=== PATIENT | female | born 2000 | race Caucasian/White ===

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

== ENCOUNTER 2022-02-18 14:59 | Emergency (ER) | payer BC ==
[2022-02-18 15:17] VITALS: RESP 16
--- NOTE | 2022-02-18 15:26 | ED ---
General Adult HPI - General Source: patient Mode of arrival: ambulatory Limitations: no limitations <HickoryAlicja - Last Filed: 02/18/22 15:21> <Gian Ochoa - Last Filed: 02/18/22 20:26> - General Chief complaint: Syncope Stated complaint: Syncope - History of Present Illness Initial comments: Patient is a pleasant 21-year-old female presenting to the emergency room with complaints of a syncopal event earlier today. She reports that she was at home earlier today and stood up at which time she began to feel dizzy and her reports that her head was spinning and things went black and subsequently she fell o the ground. She ats had a previous episode of syncope but it has been a few months and since it has happened. She does report that she occasionally gets dizzy if she stands up too fast. She denies being unconscious for a prolonged period of time. She believes that she may have hit her head she is complaining of head pain on right side. She denies any lacerations or trauma to her extremities. She is not on blood thinners. She denies any dizziness sitting at this time. She denies any chest pain, shortness of breath, abdominal pain, nausea, vomiting, blurred or double vision, headache not directly related to trauma, fevers or chills. (Alicja Lockett) Patient is a 21-year-old female with past medical history remarkable for a family medical history of factor s syndrome presents emergency Department complaining of a syncopal episode. Patient had one a few months ago that res embled this one. She states she was sitting down in her room when she stood up and was walking across when she began having tunnel vision, and brought herself/fell to the ground. She noted she was waking up on the ground. Has a mild headache at this time. Denies any acute complaints otherwise. She presents with her mother over concern for syncopal episode. Is not on blood thinners. Denies any other trauma. Denies any neck pain on the chest pain, shortness of breath. Denies any abdominal pain, nausea, vomiting. No lower extremity edema. No history of blood clots in herself. She states she gets dizzy sometimes when she stands up too fast. Has no other acute complaint at this time. Presents for further evaluation at this time. Patient was initially seen in triage and quick note was placed. Workup was started. (Gian Ochoa) - Related Data Home Medications Medication Instructions Recorded Confirmed Citalopram Hydrobromide [CeleXA] 10 mg PO HS 11/10/18 11/10/18 Minocycline HCl [Minocin] 100 mg PO BID 11/10/18 11/10/18 Allergies Allergy/AdvReac Type Severity Reaction Status Date / Time amoxicillin Allergy Rash/Hives Verified 11/10/18 17:19 Penicillins Allergy Rash/Hives Verified 11/10/18 17:19 Review of Systems ROS Other: All systems not noted in ROS Statement are negative. <Alicja Lockett - Last Filed: 02/18/22 15:21> ROS Other: All systems not noted in ROS Statement are negative. <Gian Ochoa - Last Filed: 02/18/22 20:26> ROS Statement: Those systems with pertinent positive or pertinent negative responses have been documented in the HPI. Review of Systems: CONST: Denies fever EYES: Denies blurry vision ENT: Denies nasal congestion C/V: Denies Chest pain RESP: Denies shortness of breath GI: Denies abdominal pain : Denies dysuria SKIN: Denies rash. MSK: Denies joint pain. NEURO: Denies headache (Gian Ochoa) Past Medical History Past Medical History: No Reported History History of Any Multi-Drug Resistant Organisms: None Reported Past Surgical History: No Surgical Hx Reported Past Psychological History: Anxiety Past Alcohol Use History: None Reported Past Drug Use History: None Reported <Alicja Lockett - Last Filed: 02/18/22 15:21> General Exam Limitations: no limitations <Alicja Lockett - Last Filed: 02/18/22 15:21> <Gian Ochoa - Last Filed: 02/18/22 20:26> - General Exam Comments Initial Comments: General: Appears in no acute distress. HEAD: Normal with no signs of head trauma. Negative alcocer sign. Negative raccoon eyes. EYES: PERRLA, EOMI, conjunctiva normal, no discharge. Pupils are 3 mm equal bilaterally. ENT: Hearing grossly intact, normal oropharynx. RESPIRATORY: Clear breath sounds bilaterally. No wheezes, rales, or rhonchi. C/V: Regular rate and rhythm. S1 and S2 auscultated, no edema, peripheral pulses 2+ and intact throughout ABD: Abd is soft, nontender, nondistended EXT: Normal range of motion, no obvious deformity SKIN: No rashes or lesions observed on exposed skin. NEURO: Alert and oriented x 4. Cranial nerves II-XII intact. No focal sensory or strength deficits. (Gian Ochoa) Course Vital Signs 02/18/22 02/18/22 15:12 19:40 Temperature 97.8 F 98.5 F Pulse Rate 89 71 Respiratory 16 16 Rate Blood Pressure 125/89 105/63 O2 Sat by Pulse 99 99 Oximetry Medical Decision Making - Lab Data Result diagrams: 02/18/22 15:41 02/18/22 15:41 - EKG Data -: EKG Interpreted by Me <Gian Ochoa - Last Filed: 02/18/22 20:26> - Medical Decision Making Was pt. sent in by a medical professional or institution (, PA, LOCOMOTIVE ENGINEER [employer], urgent care, hospital, or shelter...) When possible be specific @ -No Did you speak to anyone other than the patient for history (EMS, parent, family, police, friend...)? What history was obtained from this source @ -Yes. Patient's mother was able to find some family medical history. Did you review nursing and triage notes (agree or disagree)? Why? @ -I reviewed and agree with nursing and triage notes Were old charts reviewed (outside hosp., previous admission, EMS record, old EKG, old radiological studies, urgent care reports/EKG's, shelter records)? Report findings @ -No old charts were reviewed Differential Diagnosis (chest pain, altered mental status, abdominal pain women, abdominal pain men, vaginal bleeding, weakness, fever, dyspnea, syncope, headache, dizziness, GI bleed, back pain, seizure, CVA, palpatations, mental health)? @ -Differential Syncope: Valvular disease, hypertrophic cardiomyopathy, pulmonary embolism, tamponade, tachycardia, bradycardia, OR, hypovolemia, hemorrhage, dissection, anemia, intracranial hemorrhage, seizure, hypoglycemia, carbon monoxide poisoning, this is not meant to be an all-inclusive list. EKG interpreted by me (3pts min.). @ -As above X-rays interpreted by me (1pt min.). @ -Chest x-ray revealed no acute cardio pulmonary process, infiltrate. CT interpreted by me (1pt min.). @ -CT brain revealed no acute intracranial process, mass, midline shift. U/S interpreted by me (1pt. min.). @ -None done What testing was considered but not performed or refused? (CT, X-rays, U/S, labs)? Why? @ -None What meds were considered but not given or refused? Why? @ -None Did you discuss the management of the patient with other professionals (professionals i.e. , PA, LOCOMOTIVE ENGINEER [employer], lab, RT, psych nurse, oncology social work, environmental lawyer, teacher, animal services officer, foster care case manager)? Give summary @ -No Was smoking cessation discussed for >3mins.? @ -No Was critical care preformed (if so, how long)? @ -No Were there social determinants of health that impacted care today? How? (Homelessness, low income, unemployed, alcoholism, drug addiction, transportation, low edu. Level, literacy, decrease access to med. care, [facility], rehab)? @ -No Was there de-escalation of care discussed even if they declined (Discuss DNR or withdrawal of care, Hospice)? DNR status @ -No What co-morbidities impacted this encounter? (DM, HTN, Smoking, COPD, CAD, Cancer, CVA, ARF, Chemo, Hep., AIDS, mental health diagnosis, sleep apnea, morbid obesity)? @ -None Was patient admitted / discharged? Hospital course, mention meds given and route, prescriptions, significant lab abnormalities, going to OR and other pertinent info. @ -Based on the patient's presentation and physical exam, I am concern for syncopal episode for the patient. Patient does have a history of clotting disorders in the family, in addition to workup 7 triage I did recommend a d- dimer. We also discussed CT brain imaging, and the patient accepted at this time is unknown how long she was on the ground for. This is in addition to the prior syncopal episode workup as well. Vital signs within except for limits. Currently is asymptomatic. CT brain showed no acute injury, chest x-ray revealed no acute findings, EKG was within normal limits. Laboratory studies were unremarkable including an undetectable troponin, a normal d-dimer. Patient is not . On reevaluation, patient is a symptomatic. She is able to ambulate without difficulty. Exam is unchanged. We discussed her workup. I do believe it is safer to be discharged home at this time with close follow-up with her PCP. She was in agreement this plan. I answered THAT she had. I instructed the patient to follow up with their PCP in the next 1-3 days. I explained that the patient should return to the emergency department if they experience any worsening symptoms. Strict return precautions were discussed with the patient. The patient expressed understanding of these instructions. I answered all questions that the patient had. The patient was discharged home in good condition with their prescriptions and follow up information. Undiagnosed new problem with uncertain prognosis? @ -No Drug Therapy requiring intensive monitoring for toxicity (Heparin, Nitro, Insulin, Cardizem)? @ -No Were any procedures done? @ -No Diagnosis/symptom? @ -Syncope Acute, or Chronic, or Acute on Chronic? @ -Acute Uncomplicated (without systemic symptoms) or Complicated (systemic symptoms)? @ -Uncomplicated Side effects of treatment? @ -No Exacerbation, Progression, or Severe Exacerbation? @ -No Poses a threat to life or bodily function? How? (Chest pain, USA, OR, pneumonia, PE, COPD, DKA, ARF, appy, cholecystitis, CVA, Diverticulitis, Homicidal, S uicidal, threat to staff... and all critical care pts) @ -No Diagnosis/symptom? @ -Fall Acute, or Chronic, or Acute on Chronic? @ -Acute Uncomplicated (without systemic symptoms) or Complicated (systemic symptoms)? @ -Uncomplicated Side effects of treatment? @ -none Exacerbation, Progression, or Severe Exacerbation] @ -no Poses a threat to life or bodily function? @ -no (Gian Ochoa) - Lab Data Lab Results 02/18/22 02/18/22 02/18/22 Range/Units 15:41 15:41 15:41 WBC 7.0 (4.0-11.0) k/uL RBC 4.07 (3.80-5.40) m/uL Hgb 11.8 (11.4-16.0) gm/dL Hct 34.8 (34.0-46.0) % MCV 85.4 (80.0-100.0) fL MCH 29.0 (25.0-35.0) pg MCHC 33.9 (31.0-37.0) g/dL RDW 12.6 (11.5-15.5) % Plt Count 253 (150-450) k/uL MPV 7.9 Neutrophils % 70 % Lymphocytes % 17 % Monocytes % 5 % Eosinophils % 5 % Basophils % 0 % Neutrophils # 4.9 (1.3-7.7) k/uL Lymphocytes # 1.2 (1.0-4.8) k/uL Monocytes # 0.3 (0-1.0) k/uL Eosinophils # 0.4 (0-0.7) k/uL Basophils # 0.0 (0-0.2) k/uL D-Dimer (<0.60) mg/L FEU Sodium 140 (137-145) mmol/L Potassium 3.9 (3.5-5.1) mmol/L Chloride 107 (98-107) mmol/L Carbon Dioxide 26 (22-30) mmol/L Anion Gap 7 mmol/L BUN 8 (7-17) mg/dL Creatinine 0.70 (0.52-1.04) mg/dL Est GFR (CKD-EPI)AfAm >90 (>60 ml/min/1.73 sqM) Est GFR (CKD-EPI)NonAf >90 (>60 ml/min/1.73 sqM) Glucose 106 H (74-99) mg/dL Calcium 9.0 (8.4-10.2) mg/dL Total Bilirubin 0.2 (0.2-1.3) mg/dL AST 21 (14-36) U/L ALT 15 (4-34) U/L Alkaline Phosphatase 68 (38-126) U/L Troponin I <0.012 (0.000-0.034) ng/mL Total Protein 7.2 (6.3-8.2) g/dL Albumin 4.4 (3.5-5.0) g/dL HCG, Qual 02/18/22 02/18/22 Range/Units 15:41 17:32 WBC (4.0-11.0) k/uL RBC (3.80-5.40) m/uL Hgb (11.4-16.0) gm/dL Hct (34.0-46.0) % MCV (80.0-100.0) fL MCH (25.0-35.0) pg MCHC (31.0-37.0) g/dL RDW (11.5-15.5) % Plt Count (150-450) k/uL MPV Neutrophils % % Lymphocytes % % Monocytes % % Eosinophils % % Basophils % % Neutrophils # (1.3-7.7) k/uL Lymphocytes # (1.0-4.8) k/uL Monocytes # (0-1.0) k/uL Eosinophils # (0-0.7) k/uL Basophils # (0-0.2) k/uL D-Dimer 0.40 (<0.60) mg/L FEU Sodium (137-145) mmol/L Potassium (3.5-5.1) mmol/L Chloride (98-107) mmol/L Carbon Dioxide (22-30) mmol/L Anion Gap mmol/L BUN (7-17) mg/dL Creatinine (0.52-1.04) mg/dL Est GFR (CKD-EPI)AfAm (>60 ml/min/1.73 sqM) Est GFR (CKD-EPI)NonAf (>60 ml/min/1.73 sqM) Glucose (74-99) mg/dL Calcium (8.4-10.2) mg/dL Total Bilirubin (0.2-1.3) mg/dL AST (14-36) U/L ALT (4-34) U/L Alkaline Phosphatase (38-126) U/L Troponin I (0.000-0.034) ng/mL Total Protein (6.3-8.2) g/dL Albumin (3.5-5.0) g/dL HCG, Qual Not Detected - EKG Data EKG Comments: 12-lead Electrocardiogram Interpretation Note EKG was reviewed and interpreted by myself. 12-lead ECG performed at 1546 is interpreted by me as revealing normal sinus rhythm at a rate of 85 beats per minute. [place] is normal. SC interval is 122 ms, QRS duration is 91 ms, QTc is 396 ms.. There were no ST or T wave abnormalities to suggest myocardial ischemia or injury. There is an isolated T-wave inversion in lead III with no reciprocal changes. R wave progression across the precordium was satisfactory. By my interpretation this EKG is non-diagnostic for acute ischemia. No prior EKG for comparison. (Gian Ochoa) Disposition <Alicja Lockett - Last Filed: 02/18/22 15:21> Is patient prescribed a controlled substance at d/c from ED?: No Time of Disposition: 19:50 <Gian Ochoa - Last Filed: 02/18/22 20:26> Clinical Impression: Syncope, Fall Disposition: HOME SELF-CARE Condition: Good Instructions (If sedation given, give patient instructions): Syncope (ED) Referrals: Chayito Cuba III, MD [Primary Care Provider] - 1-2 days
[2022-02-18 16:30] LABS: Basophils % (A) 0 %; Eosinophils # (A) 0.4 k/uL (0-0.7); Eosinophils % (A) 5 %; HCT 34.8 % (34.0-46.0); HGB 11.8 gm/dL (11.4-16.0); Lymphocytes # (A) 1.2 k/uL (1.0-4.8); Lymphocytes % (A) 17 %; MCHC 33.9 g/dL (31.0-37.0); MCV 85.4 fL (80.0-100.0); Mean Platelet Volume 7.9; Monocytes # (A) 0.3 k/uL (0-1.0); Monocytes % (A) 5 %; Neutrophils # (A) 4.9 k/uL (1.3-7.7); Neutrophils % (A) 70 %; Platelet Count 253 k/uL (150-450); RBC 4.07 m/uL (3.80-5.40); RDW 12.6 % (11.5-15.5)
[2022-02-18 17:18] LABS: ALT 15 U/L (4-34); AST 21 U/L (14-36); African American GFR (CKD) >90 (>60 ml/min/1.73 sqM); Albumin 4.4 g/dL (3.5-5.0); Alkaline Phosphatase 68 U/L (38-126); Anion Gap 7 mmol/L; Blood Urea Nitrogen 8 mg/dL (7-17); Carbon Dioxide 26 mmol/L (22-30); Chloride 107 mmol/L (98-107); Glucose 106 mg/dL (74-99); Non-African American GFR(CKD) >90 (>60 ml/min/1.73 sqM); Potassium 3.9 mmol/L (3.5-5.1); Sodium 140 mmol/L (137-145); Total Bilirubin 0.2 mg/dL (0.2-1.3); Total Protein 7.2 g/dL (6.3-8.2)
--- NOTE | 2022-02-18 17:51 | XR ---
EXAMINATION: XR chest 2V: 02/18/2022 5:43 PM CLINICAL INDICATION: syncope TECHNIQUE: Departmental protocol COMPARISON: None FINDINGS: The lungs are clear. The pleural spaces are negative. The cardiac silhouette is not enlarged. The remainder of the mediastinal silhouette is unremarkable. The skeletal structures are negative for acute findings. Soft tissue shows marked distention of the gastric fundus. IMPRESSION: 1. No acute chest process. 2. Marked gaseous distention of the stomach.
[2022-02-18 19:42] VITALS: BP 105/63; PULSE 71; TEMP 98.5
--- NOTE | 2022-02-18 19:48 | CT ---
EXAMINATION: CT brain wo con: 02/18/2022 7:04 PM CLINICAL INDICATION: [facility]; syncope TECHNIQUE: Standard departmental protocol.; 1188.4 mGy-cm COMPARISON: None. FINDINGS: The calvarium is intact. There is no intracranial hemorrhage. There is no intracranial mass or mass effect. No definite new intra-axial or extra-axial attenuation defect. The paranasal sinuses, middle ear cavities, and mastoid sinus air cells are clear. The orbits are unremarkable. IMPRESSION: NO ACUTE PROCESS.
== END 2022-02-18 20:05 | disposition home or self-care (01) ==
LOC: EC 14:59
DX: R55 Syncope and collapse (principal); F41.9 Anxiety disorder, unspecified; Z88.0 Allergy status to penicillin; Z04.3 Encounter for examination and observation following other accident
CPT/HCPCS: 36415; 70450; 71046; 80053; 84484; 84703; 85025; 85379; 93005; 99284